=== PATIENT | female | born 1955 | race Caucasian/White ===

== ENCOUNTER → 2018-03-20 | Emergency (ER) | payer OTHER ==
[~2018-03-20] VITALS: Ht 160 cm; Wt 97.1 kg
[~2018-03-20] MED LIST: ASPIR 8181 MG; CALTRATE 600600 MG PO; CLONAZEPAM0.5 MG; COZAAR25 MG; DOLOGESIC 500-1 EACH PO; EVISTA60 MG PO; METFORMIN HCL850 MG; NABUMETONE500 MG PO; OMEGA-31000 MG PO; PERCOCET 5/3251 TAB PO; PLETAL50 MG PO; SYNTHROID50 MCG PO
== END | disposition home or self-care (01) ==
LOC: ER 00:06
DX: R06.02 Shortness of breath (principal); R45.0 Nervousness; R00.2 Palpitations; F41.8 Other specified anxiety disorders

== ENCOUNTER 2018-05-23 23:49 | Emergency (ER) | payer OTHER ==
[~2018-05-23] VITALS: Ht 160 cm; Wt 90.7 kg
== END 2018-05-24 08:14 | disposition home or self-care (01) ==
LOC: ER 23:49
DX: J39.2 Other diseases of pharynx (principal)

== ENCOUNTER 2019-07-11 16:31 | Emergency (ER) | payer OTHER ==
[~2019-07-11] VITALS: Ht 160 cm; Wt 86.2 kg
== END 2019-07-11 21:34 | disposition home or self-care (01) ==
LOC: ER 16:31
DX: R07.89 Other chest pain (principal); F41.8 Other specified anxiety disorders

== ENCOUNTER 2021-07-22 15:04 | Emergency (ER) | payer OTHER ==
[~2021-07-22] VITALS: Ht 160 cm; Wt 90.7 kg
[2021-07-22] MEDS ORDERED: TOPROL XL25 M1 (15:26)
[2021-07-22] MEDS ORDERED: EFFEXOR XR75 MG (15:27)
[2021-07-22] MEDS ORDERED: ECOTRIN81 MG (15:28)
[2021-07-22] MEDS ORDERED: PHENYLEPHRINE HC NASAL (18:35)
== END 2021-07-22 18:41 | disposition home or self-care (01) ==
LOC: ER 15:04
DX: R04.0 Epistaxis (principal)